=== PATIENT | male | born 1990 | race Caucasian/White ===

== ENCOUNTER → 2025-08-03 08:23 | Outpatient (CLI) | payer OTHER, SELFPAY ==
--- NOTE | 2025-08-03 08:25 | DI.RAD.S_ITS ---
PROCEDURE: XR ABDOMEN 1V INDICATIONS: Abdominal bloating TECHNIQUE: One view of the abdomen acquired. COMPARISON: None. FINDINGS: Surgical changes and devices: None. Bowel: Significant colonic stool particularly within the right colon. Overall gas pattern is nonobstructive. Soft tissues: No suspicious abdominal calcifications. Visualized solid organ contours appear normal in size. Bones: No suspicious bony lesions. IMPRESSION: Nonobstructive gas pattern with prominent colonic stool. Dictated by: Viviana Lugo M.D. on 08/03/2025 at 15:45 Approved by: Viviana Lugo M.D. on 08/03/2025 at 15:46
--- NOTE | 2025-08-03 08:49 | DI.RAD.S_ITS ---
PROCEDURE: XR THORACIC SPINE 3V INDICATIONS: back pain TECHNIQUE: 3 views of the thoracic spine were acquired. COMPARISON: None. FINDINGS: Bones: No fractures or dislocations. No suspicious bony lesions. 12 pairs of ribs are noted, and appear intact where visualized. Soft tissues: No paravertebral stripe thickening. IMPRESSION: No visualized acute fracture or dislocation. However, if clinical concern and/or pain persist, short interval imaging followup in 7-10 days is recommended, as occult injury cannot be definitively excluded. Dictated by: Viviana Lugo M.D. on 08/03/2025 at 15:52 Approved by: Viviana Lugo M.D. on 08/03/2025 at 15:52
== END ==
PROVIDERS: Referring Provider Nurse Practitioner Family; Visit Provider Nurse Practitioner Family
DX: M54.9 Dorsalgia, unspecified (principal); R10.9 Unspecified abdominal pain
CPT/HCPCS: 72072; 74018